=== PATIENT | male | born 1965 | race Caucasian/White ===

== ENCOUNTER 2022-07-20 08:44 | Day surgery (SDC) | payer OTHER, SELFPAY ==
[2022-07-19 13:08] VITALS: BP 103/54; PULSE 88; RESP 18; TEMP 36.4; O2SAT 99
--- NOTE | 2022-07-20 | OP_ITS ---
OPERATION DATE: ??07/20/2022 ADDENDUM:? Name of the procedure should be:? Colonoscopy to cecum with cold snare polypectomy x1. Follow up colonoscopy should be in five years. BHUPENDRA
[2022-07-20 09:03] VITALS: BP 117/74; PULSE 93; RESP 18; TEMP 35.9; O2SAT 99; BMI 41.5
[2022-07-20] MEDS: LACTATED RINGER'S SOLUTION 1,000 ML 50 ML IV (09:17)
--- NOTE | 2022-07-20 12:40 | OP_ITS ---
OPERATION DATE: ??07/20/2022 PREOPERATIVE DIAGNOSIS:? Colorectal screening. POSTOPERATIVE DIAGNOSIS:? 2 mm descending colon polyp. PREOPERATIVE DIAGNOSIS:? Colonoscopy to cecum with cold forceps polypectomy x1. SURGEON:? Cristiano Orellana M.D. ANESTHESIA:? Monitored anesthesia care. ESTIMATED BLOOD LOSS:? Less than 1 mL. INDICATIONS AND CONSENT:? Patient is a 57-year-old male presents for colorectal screening.? Indications, risks, benefits, alternatives of proceeding with colonoscopy were explained extensively to the patient, including the risks of bleeding, colon perforation or anesthetic complications.? All of his questions were answered.? Informed consent was obtained. PROCEDURE:? Patient brought to the operating room, placed in the left lateral decubitus position.? Monitored anesthesia care was provided.? Rectal exam was performed which showed no masses or blood.? The scope was inserted into the anal canal.? Under direct visualization was advanced.? With the aid of abdominal compression, it was advanced to the cecum where cecal markings were clearly identified.? Upon withdrawal of the scope, mucosal surfaces were carefully examined.? There were no mass lesions or inflammatory changes.? No significant diverticulosis.? In the descending colon, there was noted to be a 2 mm sessile polyp that was removed with cold biopsy forceps with good hemostasis.? The scope was retroflexed in the anal canal.? There was no significant hemorrhoidal disease.? Scope was then withdrawn.? Patient tolerated procedure well, was sent to recovery room in good condition. CC:? Patient?s family physician BHUPENDRA
[2022-07-20 12:53] VITALS: BP 102/64; BP 84/56; PULSE 84; PULSE 88; RESP 16; TEMP 36.4; TEMP 36.5; O2SAT 97; O2SAT 98
== END 2022-07-20 13:30 ==
PROVIDERS: PCP Family Medicine; Visit Provider Surgery
PROC: (CPT 45380; principal; 2022-07-20 10:05)
DX: Z12.11 Encounter for screening for malignant neoplasm of colon (principal); D12.4 Benign neoplasm of descending colon; E11.9 Type 2 diabetes mellitus without complications; N52.9 Male erectile dysfunction, unspecified; Z87.891 Personal history of nicotine dependence; K21.9 Gastro-esophageal reflux disease without esophagitis; E78.5 Hyperlipidemia, unspecified; I10 Essential (primary) hypertension; M19.90 Unspecified osteoarthritis, unspecified site; Z90.49 Acquired absence of other specified parts of digestive tract; Z79.899 Other long term (current) drug therapy; Z79.84 Long term (current) use of oral hypoglycemic drugs; E66.9 Obesity, unspecified; Z68.41 Body mass index [BMI] 40.0-44.9, adult
CPT/HCPCS: 45380; 36415; 88305; J2704

== ENCOUNTER 2022-11-03 07:33 | Outpatient (OUT) | payer OTHER, SELFPAY ==
--- NOTE | 2022-11-03 07:37 | US_ITS ---
The [address] [address] Patient Name: JADE JUAREZ MRN: [id number] date: 1965 Sex: M Assigned Patient Location: [place] Current Patient Location: [place] Accession/Order Number: [id number] Exam Date: 11/03/2022 07:40 Report Date: 11/03/2022 09:47 At the request of: ROB LU Procedure: US scrotum EXAMINATION: US scrotum HISTORY: Spermatocele N43.40 COMPARISON: No relevant comparison available. TECHNIQUE: High-resolution sonographic imaging of the scrotum and contents was performed. FINDINGS: RIGHT: TESTICLE: Homogeneous echotexture. No visible mass. Color Doppler flow is present. Spectral Doppler demonstrates normal arterial waveform and flow, 4/2 cm/s (PSV/EDV), and normal venous wave flow averaging 2 cm/s. EPIDIDYMIS: Heterogeneous echotexture. OTHER: Varicocele. LEFT: TESTICLE: Homogeneous echotexture. No visible mass. Color Doppler flow is present. Spectral Doppler demonstrates arterial waveform and flow, 3/2 cm/s (PSV/EDV), and normal venous flow averaging 2 cm/s. EPIDIDYMIS: Heterogeneous echotexture. OTHER: Several anechoic cystic areas within left scrotum, largest is 2.9 cm. Small varicocele. US/US scrotum IMPRESSION: 1. Left scrotal spermatoceles versus loculated hydroceles; spermatoceles are favored. 2. Bilateral varicoceles. Electronically authenticated by: JAX COLÓN Date: 11/03/2022 09:47
== END 2022-11-03 07:34 | disposition home or self-care (01) ==
LOC: US 07:33
PROVIDERS: PCP Family Medicine; Visit Provider Urology
DX: N43.40 Spermatocele of epididymis, unspecified (principal); I86.1 Scrotal varices; R93.812 Abnormal radiologic findings on diagnostic imaging of left testicle
CPT/HCPCS: 76870

== ENCOUNTER 2023-08-14 11:29 | Outpatient (OUT) | payer OTHER, SELFPAY ==
[2023-08-14 12:27] LABS: Thyroid Stimulating Hormone 3.754 uIU/mL (0.358-3.740)
[2023-08-17 14:10] LABS: Methylmalonic Acid, Serum 358 nmol/L (0-378)
== END 2023-08-14 11:30 | disposition home or self-care (01) ==
LOC: LAB 11:31
PROVIDERS: PCP Family Medicine; Visit Provider Nurse Practitioner Adult Health
DX: R25.1 Tremor, unspecified (principal); G62.9 Polyneuropathy, unspecified; R53.1 Weakness; R20.2 Paresthesia of skin
CPT/HCPCS: 36415; 82607; 82746; 83921; 84443